=== PATIENT | male | born 1985 | race Caucasian/White ===

== ENCOUNTER 2017-11-05 20:58 | Emergency (ER) | payer BC ==
[~2017-11-05] VITALS: Ht 188 cm; Wt 93.0 kg
[2017-11-05] MEDS ORDERED: TDAP DIPH,PERTUSS,TET VAC/PF 0.5 ML DISP.SYRIN IM ONE ×2 (21:15→21:28)
--- NOTE | 2017-11-05 21:53 | NUR ---
Patient discharged to home in stable conditon. Written and verbal after care instructions given. Patient verbalizes understanding of instructions. Patient able to ambulate unassisted with a steady gait. Patient left with all personal belongings.
[2017-11-05 21:56] VITALS: BP 142/88
== END 2017-11-05 21:53 | disposition home or self-care (01) ==
LOC: ER 20:59
DX: S61.210A Laceration without foreign body of right index finger without damage to nail, initial encounter (principal); W26.0XXA Contact with knife, initial encounter; Y93.89 Activity, other specified; Y92.89 Other specified places as the place of occurrence of the external cause; Y99.8 Other external cause status
CPT/HCPCS: 12001; 90471; 90715; 99283; A4217; A4663; J3490

== ENCOUNTER 2017-11-07 23:31 | Emergency (ER) | payer BC ==
[~2017-11-07] VITALS: Ht 188 cm; Wt 93.0 kg
--- NOTE | 2017-11-07 23:49 | NUR ---
DR. DUNG CORREIA MD AT BEDSIDE FOR MSE.
[2017-11-07] MEDS ORDERED: NEOMY/BACITRA/POLYMYXIN B OINT UD PACKET TP ONE (23:58)
--- NOTE | 2017-11-08 00:02 | NUR ---
Patient discharged to home in stable conditon. Written and verbal after care instructions given. Patient verbalizes understanding of instructions.
[2017-11-08 00:03] VITALS: BP 144/72
== END 2017-11-08 00:03 | disposition home or self-care (01) ==
LOC: ER 23:45
DX: S61.210D Laceration without foreign body of right index finger without damage to nail, subsequent encounter (principal); Z48.01 Encounter for change or removal of surgical wound dressing; X58.XXXD Exposure to other specified factors, subsequent encounter
CPT/HCPCS: 99282; A4663

== ENCOUNTER 2017-11-19 00:42 | Emergency (ER) | payer BC ==
[~2017-11-19] VITALS: Ht 188 cm; Wt 93.0 kg
--- NOTE | 2017-11-19 01:05 | NUR ---
MD ORTIZ AT BEDSIDE TO REMOVE SUTURES
[2017-11-19 01:20] VITALS: BP 128/82
== END 2017-11-19 01:15 | disposition home or self-care (01) ==
LOC: ER 00:45
DX: S61.210D Laceration without foreign body of right index finger without damage to nail, subsequent encounter (principal); Z48.02 Encounter for removal of sutures; X58.XXXD Exposure to other specified factors, subsequent encounter
CPT/HCPCS: A4663

== ENCOUNTER 2018-06-01 15:40 | Emergency (ER) | payer BC ==
[~2018-06-01] VITALS: Ht 182.9 cm; Wt 88.5 kg
[2018-06-01] MEDS ORDERED: HYDROMORPHONE 1 MG/1 ML DISP.SYRIN ONE (15:52)
[2018-06-01] MEDS ORDERED: ONDANSETRON 4 MG/2 ML VIAL ONE (15:53)
[2018-06-01] MEDS ORDERED: HYDROMORPHONE 1 MG/1 ML DISP.SYRIN IM ONE (16:00)
[2018-06-01] MEDS ORDERED: ONDANSETRON 4 MG/2 ML VIAL IM ONE (16:00)
--- NOTE | 2018-06-01 16:17 | NUR ---
PATIENT WAS SEEN BY MD FOR C/O KNEE INJURY/PAIN. XRAYS DONE. KNEE IMMOBILIZER PLACED, CRUTCHES DISPENSED WITH INSTRUCTIONS/DEMO. PAIN MEDICATION GIVEN WITH WARNINGS AND PRECAUTIONS. DAD TO DRIVE. DC, RX (WITH PRECAUTIONS) AND F/U INSTRUCTIONS GIVEN AND EXPLAINED TO PATIENT WHO STATES HE UNDERSTANDS ALL INSTRUCTIONS.
== END 2018-06-01 16:20 | disposition home or self-care (01) ==
LOC: ER 15:40
DX: S83.92XA Sprain of unspecified site of left knee, initial encounter (principal); V00.831A Fall from motorized mobility scooter, initial encounter; Y93.89 Activity, other specified; Y92.89 Other specified places as the place of occurrence of the external cause; Y99.8 Other external cause status
CPT/HCPCS: 29505; 73564; 96372 ×2; 99283; J1170; J2405; A4663